=== PATIENT | female | born 1985 | race Hispanic/Latino ===

== ENCOUNTER 2022-03-16 13:11 | Emergency (ER) | payer OTHER ==
--- OUTSIDE RECORDS SUMMARY | 2022-03-16 13:13 | XMS REPORT | Continuity of Care Document ---
:1985 Author Organization [facility] t Address [address] [place] [address] Care Team Providers Name Role Phone Sherwin RAMOS Primary Care Physician Unavailable Ed JENSEN Attending Clinician Unavailable Kirill Hancock DO Attending Clinician Percy VELÁSQUEZ Attending Clinician Unavailable [place] WHKAVON C Attending Clinician Sherwin Velasquez Attending Clinician Payers Payer Name Policy Type Policy Number Effective Date Expiration Date On license of [facility] [id number] 2021 [facility] MEDICAID 00:00:00 Problems Condition Condition Condition Status Onset Resolution Last Treating Co mments Source Name Details Category Date Date Treatment Clinician Date Screening Screening Disease Active 2018-10 Uni vers examinatio examinatio 0-16 it y of n for n for 00:00: [place] venereal venereal 00 Medica l disease disease Branch Lump or Lump or Disease Active 2018-10 Univers mass in mass in 0-16 ity of breast breast 00:00: [place] [address] Medical Branch Vaginal Vaginal Disease Active 2018-10 Univers discharge discharge 0-16 ity of 00:00: [place] [address] Medical Branch Encounter Encounter Disease Active 2018-10 Uni vers for for 0-16 ity of surveillan surve[place]an [place] of ce of 00 Medical contracept contracept Br anch tosha, otsha, unspecifie unspecifie d d contracept contracept ace ace History of History of Disease Active 2018-10 U nivers bilateral bilateral 0-16 ity of tubal tubal 00:00: [place] ligation ligation 00 Medica l Branch IUD IUD Disease Active 2018-10 Univers (intrauter (intrauter 0-16 it y of ine ine 00:00: [place] device) in device) in [address] Branch Vaginitis Vaginitis Disease Active Uni vers and R/O and R/O 8-10 ity of Herpes Herpes 00:00: [place] 00 Medical Branch Tobacco Tobacco Disease Active Univers abuse abuse 6-03 ity of 00:00: [place] 00 Medical Branch 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 No genetic informati on available . To f/u with Ob provider to clarify. If carrier, recommend genetic counselin g and testing of FOB. Chronic Chronic Disease Active Overview: [facility] [place] [facility] ers narcotic narcotic 3- Was on ity of dependence dependence 00:00: 8-10 tabs [place] 00 of Medical hydrocodo Branch ne per day. Decreased to 1-2. Self-wean ing. Let pediatric s know if still on near delivery. Had consult with Dr. Lieberman for possible suboxone, but no immediate appts available . Obesity Obesity Disease Active Overview: [facility] [place] [facility] ers complicati complicati 3-04 Monitor i ty of ng ng 00:00: weight [place] , , 00 [id number] Medical childbirth childbirth Diagnosis Branch , or , or Term puerperium puerperium Correspondence Transcriber , , Utility antepartum antepartum Allergies, Adverse Reactions, Alerts Allergy Allergy Status Severity Reaction(s) Onset Inactive Treating Comm ents Source Name Type Date Date Clinician NO KNOWN Drug Active Univers ALLERGIE Class ity of S [facility] Social History Social Habit Start Date Stop Date Quantity Comments Source History of tobacco Cigarette Smoker [place] of use [facility] Cigarettes smoked 2019-10-20 2019-10-20 Univers ity of current (pack per 00:00:00 00:00:00 [place] ) - Reported Branch Tobacco use and 2019-10-20 2019-10-20 Never used Universit y of exposure 00:00:00 00:00:00 [facility] Cigarette 2019-10-20 2019-10-20 University of pack-years 00:00:00 00:00:00 [facility] Alcohol intake 2019-10-20 2019-10-20 Current University of 00:00:00 00:00:00 non-drinker of [facility] alcohol [place] (finding) Sex Ass[birth year] At [birth year] Universit y of 00:00:00 00:00:00 [facility] Smoking Status Start Date Stop Date Source Current every day smoker 2019-10-20 00:00:[address] [facility] Medications Ordered Filled Start Stop Current Ordering Indication Dosage Frequency Signature Comments Components Source Medication Medication Date Date Medication? Clinician (SIG) Name Name metroNIDAZO 2020-0 Yes [id number] 500mg Take 1 Univers LE 500 mg 3-20 tablet by ity o f tablet 00:00: mouth 2 [place] (two) Medical times Branch daily. metroNIDAZO 2019-0 Yes [id number] 500mg Take 1 Univers LE 500 mg 3-20 tablet by ity o f tablet 00:00: mouth 2 [place] (two) Medical times Branch daily. amoxicillin 2018-10 Yes [id number] 875mg Take 1 Univers 875 mg 2-24 tablet by ity of tablet 00:00: mouth 2 [place] (two) Medical times Branch daily. amoxicillin 2018-10 Yes [id number] 875mg Take 1 Univers 875 mg 2-24 tablet by ity of tablet 00:00: mouth 2 [place] (two) Medical times Branch daily. amoxicillin 2018-10 Yes [id number] 875mg Take 1 Univers 875 mg 2-24 tablet by ity of tablet 00:00: mouth 2 [place] (two) Medical times Branch daily. MULTIVITAMI 2017-10 Yes 3{each} Take 3 U nivers N WITH 2-10 Each by ity of MINERALS 20:48: mouth [place] (HAIR,SKIN 28 daily. Medical AND NAILS Branch ORAL) MULTIVITAMI 2017-10 Yes 3{each} Take 3 U nivers N WITH 2-10 Each by ity of MINERALS 20:48: mouth [place] (HAIR,SKIN 28 daily. Medical AND NAILS Branch ORAL) MULTIVITAMI 2017-10 Yes 3{each} Take 3 U nivers N WITH 2-10 Each by ity of MINERALS 20:48: mouth [place] (HAIR,SKIN 28 daily. Medical AND NAILS Branch ORAL) MULTIVITAMI 2017-10 Yes 3{each} Take 3 U nivers N WITH 2-10 Each by ity of MINERALS 20:48: mouth [place] (HAIR,SKIN 28 daily. Medical AND NAILS Branch ORAL) [facility] 2017-10 Yes TK 1 T PO Uni vers mg tablet 1-29 QD ity of 00:00: [place] 00 Medical Branch [facility] 2017-10 Yes TK 1 T PO Uni vers mg tablet 1-29 QD ity of 00:00: [place] 00 Medical Branch [facility] 2017-10 Yes TK 1 T PO Uni vers mg tablet 1-29 QD ity of 00:00: [place] 00 Medical Branch [facility] 2017-10 Yes TK 1 T PO Uni vers mg tablet 1-29 QD ity of 00:00: [place] 00 Medical Branch [facility] Yes 1{tbl} Take 1 Uni vers XR 5-1,000 2-28 tablet by ity of mg per 00:00: mouth [place] tablet 00 daily. Medical Branch [facility] 2015-10 Yes 1{tbl} Take 1 Uni vers XR 5-1,000 2-28 tablet by ity of mg per 00:00: mouth [place] tablet 00 daily. Medical Branch [facility] Yes 1{tbl} Take 1 Uni vers XR 5-1,000 2-28 tablet by ity of mg per 00:00: mouth [place] tablet 00 daily. Medical Branch [facility] 2015-10 Yes 1{tbl} Take 1 Uni vers XR 5-1,000 2-28 tablet by ity of mg per 00:00: mouth [place] tablet 00 daily. Medical Branch SUBOXONE 2015-10 Yes 1{each} Take 1 Univ ers 8-2 mg 2-23 Each by ity of sublingual 00:00: [place] (two) Medical times Branch daily. SUBOXONE 2015-10 Yes 1{each} Take 1 Univ ers 8-2 mg 2-23 Each by ity of sublingual 00:00: [place] (two) Medical times Branch daily. SUBOXONE 2015-10 Yes 1{each} Take 1 Univ ers 8-2 mg 2-23 Each by ity of sublingual 00:00: [place] (two) Medical times Branch daily. SUBOXONE 2016- Yes 1{each} Take 1 Univ ers 8-2 mg 2-23 Each by ity of sublingual 00:00: [place] (two) Medical times [place] daily. Meclizine Meclizine Yes Na Brannon 1 tablet Common HCl HCl as needed [facility] Naprosyn Naprosyn Yes Na Brannon 1 tablet Common with food Spirit or milk as - [facility] needed [facility] Kombiglyze Kombiglyze Yes Na Brannon TAKE 1 Common XR XR TABLET BY Spirit MOUTH - [facility] EVERY DAY [facility] CVS CVS Yes Na Brannon 1 tablet Common Ranitidine Ranitidine as needed [facility] Na Brannon 1 tablet Co mmon [facility] Macrobid Macrobid Yes Na Brannon 1 capsule Common with food [facility] FreeStyle FreeStyle Yes Na Brannon not Co mmon Lite Test Lite Test defined Sp marie - [facility] Kombiglyze Kombiglyze Yes Na Brannon 1 tablet Common XR XR with Spirit evening - [facility] meal [facility] Procedures This patient has no known procedures. Encounters Start End Encounter Admission Attending Care Care Encounter Source Date/Time Date/Time Type Type Clinicians Facility Department ID 2021-12-26 2021-12-26 Outpatient R SERGIO [facility] [id number] Univers 10:00:00 10:00:00 EDWIN [id number] [facility] 2021-12-26 2021-12-26 [id number] Univers 10:00:00 10:00:00 EDWIN [facility] 2021-01-17 2021-01-17 Patient Santi [facility] [id number] Univers 00:00:00 00:00:00 Outreach Juanjo PRIMARY [id number] i ty of [facility] [id number] [place] [id number] [facility] 2020-05-12 2020-05-12 Outpatient R AKINSIPE, [facility] [id number] Univers 08:15:00 08:15:00 YAQUELIN [id number] ity o f [facility] 2020-05-12 2020-05-12 Outpatient R AKINSIPE, [facility] [id number] Univers 08:15:00 08:15:00 [address]IN ity o [address] [facility] 2020-04-29 2020-04-29 Outpatient R AKINSIPE, [facility] [id number] Univers 10:30:00 10:30:00 YAQUELIN ity o f 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 ical & CHILD 107 [facility] 2019-09-09 2019-09-09 Telephone LEN Ramos [id number] [facility] 00:00:00 00:00:00 Aniaosbaldoyesika Courtney HEAD GOLF COACH [id number] ity of [facility] [id number] Erick as MATERNAL [phone] [facility] ical & CHILD [address] [place] [address] 2018-09-25 2018-09-25 Outpatient [facility] [id number] Common 00:00:00 00:00:00 [facility] 2018-05-13 2018-05-13 [id number] Common 14:30:00 14:30:00 Alset Wellen [facility] it [facility] Results This patient has no known results.
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
--- NOTE | 2022-03-16 15:59 | RAD REPORT ---
EXAM DESCRIPTION: RAD - Knee Left 3 View - 03/16/2022 3:10 pm CLINICAL HISTORY: Pain COMPARISON: No comparisons FINDINGS: No fracture, dislocation or periosteal reaction.No joint effusion seen. No joint space ana maría rowing. No soft tissue abnormality. IMPRESSION: Negative left knee. Clinical concerns for internal derangement or occult bony injury could be further assessed with MR im aging.
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
[2022-03-16 17:30] VITALS: BP 98/76; TEMP 98.9; O2SAT 100
== END 2022-03-16 17:22 | disposition home or self-care (01) ==
LOC: ER 13:11
DX: S00.83XA Contusion of other part of head, initial encounter (principal); S80.02XA Contusion of left knee, initial encounter; S80.01XA Contusion of right knee, initial encounter; V47.6XXA Car passenger injured in collision with fixed or stationary object in traffic accident, initial encounter; E11.9 Type 2 diabetes mellitus without complications; F17.210 Nicotine dependence, cigarettes, uncomplicated
CPT/HCPCS: 70450; 72125; 99284

== ENCOUNTER 2024-12-01 16:16 | Emergency (ER) | payer OTHER ==
[2024-12-01] MEDS ORDERED: NA CHLORIDE 0.9% 1,000 ML ONE ×2 (16:38→17:36)
[2024-12-01 16:46] LABS: Absolute Basophils 0.1 K/uL (0-0.5); Absolute Lymphocytes (CBC) 0.8 K/uL (0.7-4.9); Absolute Monocytes 0.4 K/uL (0.1-1.3); Absolute Neutrophil 5.6 K/uL (1.8-8.0); Eosinophils % 0.4 % (0-4.4); Hematocrit 47.7 % (36.0-45.0); Hemoglobin 15.7 g/dL (12.0-15.0); Lymphocytes % 11.7 % (15.3-44.8); MCH 31.5 pg (27.0-35.0); MCV 95.5 fL (80-100); MPV 9.2 fL (7.6-11.3); Monocytes % 5.5 % (3.3-12.3); Neutrophils % 81.4 % (41.7-73.7); Nucleated Red Blood Cells % 0.1 % (0-0); Platelets 357 thou/uL (152-406); RBC Red Blood Cell Count 4.99 M/uL (3.86-4.86); Red Cell Distribution Width 13.9 % (12.1-15.2)
[2024-12-01 17:04] LABS: Albumin 3.7 g/dL (3.4-5.0); Albumin/Globulin Ratio 0.9 (1.1-1.8); Anion Gap 11.7 mEq/L (5.0-15.0); Bilirubin Total 0.5 mg/dL (0.2-1.0); Globulin 4.3 g/dL (2.3-3.5); Potassium 3.7 mEq/L (3.5-5.1)
[2024-12-01] MEDS ORDERED: POTASSIUM CL SA 10 MEQ TAB PO ONE (17:35)
[2024-12-01] MEDS ORDERED: INSULIN REGULAR (HUMAN) 100 UNIT/ML ONE (17:35)
--- NOTE | 2024-12-01 19:28 | EDPHYS ---
Physician Documentation [facility] Name: Natividad Hirsch Age: 39 yrs Sex: Female : 1985 Arrival Date: 12/01/2024 Time: 16:16 Bed 23 Private MD: ED Physician Gucci Vitale HPI: 12/01 16:27 This 39 yrs old Female presents to ER via Unassigned with complaints of ms3 hyperglycemia. 16:27 39 year old female presents to the Emergency Department with symptoms of nausea, ms3 dizziness, and dry mouth. The patient reports being thirsty. Patient states she is currently on Metformin for her diabetes. Patient states [facility] came to the residential and checked her glucose and she was told it was high.. Historical: - Allergies: 16:17 No Known Allergies; db - Home Meds: 16:44 Metformin Oral [Active]; db - PMHx: 16:44 diabetes mellitus; db - PSHx: 16:44 section; db - Immunization history:: Adult Immunizations unknown. - Infectious Disease History:: Denies. - Social history:: Smoking status: Patient reports the use of cigarette tobacco products, smokes one-half pack cigarettes per day, Reported history of juuling and/or vaping. ROS: 16:27 Constitutional: Negative for fever, and chills. Cardiovascular: Negative for chest ms3 pain, and palpitations. Respiratory: Negative for shortness of breath, cough, wheezing, and pleuritic chest pain, Abdomen/GI: Negative for abdominal pain, nausea, vomiting, diarrhea, and constipation, MS/Extremity: Negative for injury and deformity, 16:27 Endocrine: Positive for polydipsia, polyuria, Exam: 16:27 Constitutional: This is a well developed, well nourished patient who is awake, alert, ms3 and in no acute distress. Cardiovascular: Regular rate and rhythm with a normal S1 and S2. No gallops, murmurs, or rubs. Normal PMI, no JVD. No pulse deficits. Respiratory: Lungs have equal breath sounds bilaterally, clear to auscultation and percussion. No rales, rhonchi or wheezes noted. No increased work of breathing, no retractions or nasal flaring. Abdomen/GI: Soft, non-tender, with normal bowel sounds. No distension or tympany. No guarding or rebound. No evidence of tenderness throughout. Skin: Warm, dry with normal turgor. Normal color with no rashes, no lesions, and no evidence of cellulitis. MS/ Extremity: Pulses equal, no cyanosis. Neurovascular intact. Full, normal range of motion. Vital Signs: 16:17 BP 109 / 77; Pulse 113; Resp 16; Temp 98.5; Pulse Ox 100% ; Weight 46.27 kg; Height 5 db ft. 3 in. ; 17:00 BP 120 / 89; Pulse 101; Resp 16; Pulse Ox 100% on R/A; db 18:00 BP 112 / 87; Pulse 85; Resp 16; Pulse Ox 100% on R/A; db 19:39 BP 101 / 76; Pulse 90; Resp 17; Temp 98.7; Pulse Ox 100% ; vk 16:17 Body Mass Index 18.07 (46.27 kg, 160.02 cm) db MDM: 16:24 Medical Screening Exam initiated ms3 16:27 Differential diagnosis: DKA, hyperglycemia. ms3 20:18 Data reviewed: vital signs, nurses notes, and as a result, I will discharge patient. I ms3 considered the following discharge prescriptions or medication management in the emergency department Medications were administered in the Emergency Department. See MAR. Counseling: I had a detailed discussion with the patient and/or guardian regarding the historical points, exam findings, and any diagnostic results supporting the discharge/admit diagnosis, lab results, the need for outpatient follow up, to return to the emergency department if symptoms worsen or persist or if there are any questions or concerns that arise at home. Special discussion: I discussed with the patient/guardian in detail that at this point there is no indication for admission to the hospital. It is understood, however, that if the symptoms persist or worsen the patient needs to return immediately for re-evaluation. ED course: Patient with elevated blood glucose level without anion gap. Patient tolerating p.o. in the emergency department, symptoms improved, alert and orient x 4, no apparent distress, nontoxic-appearing. Patient states she is currently out of her metformin 500 mg twice daily. Patient given prescription for metformin 500 mg twice daily. Patient to follow-up with her primary care physician tomorrow as discussed. All questions were answered. Return precautions discussed include worsening symptoms, or any other concerns.. 12/01 16:24 Order name: CBC with Diff; Complete Time: 17:08 ms3 12/01 16:24 Order name: CMP; Complete Time: 17:15 ms3 12/01 16:47 Order name: Glucose, Ancillary Testing; Complete Time: 16:50 EDMS 12/01 19:05 Order name: Glucose, Ancillary Testing; Complete Time: 19:23 EDMS 12/01 16:24 Order name: Glucose Level; Complete Time: 16:36 ms3 12/01 18:07 Order name: Glucose Level; Complete Time: 18:55 ms3 Administered Medications: 16:28 Drug: NS 0.9% IV 1000 ml IV at 1000 ml once; to be given as a bolus over 60 minutes db Route: IV; Rate: 1000 ml; Site: right antecubital; 17:30 Follow up: Response: No adverse reaction; IV Status: Completed infusion; IV Intake: db 1000ml 17:36 Drug: Insulin Regular Human Sub-Q 10 units Sub-Q once {Co-Signature: ll1 (Rory Tellez RN).} Route: Sub-Q; Site: right upper arm; 18:54 Follow up: Response: No adverse reaction; Blood sugar is lowered db 17:39 Drug: Potassium Chloride PO 40 mEq PO once Route: PO; db 18:54 Follow up: Response: No adverse reaction db 17:39 Drug: NS 0.9% IV 1000 ml IV at 1000 ml once; to be given as a bolus over 60 minutes db Route: IV; Rate: 1000 ml; Site: right antecubital; 19:41 Follow up: Response: No adverse reaction; IV Status: Completed infusion; IV Intake: lg3 1000ml Point of Care Testing: Blood Glucose: 18:54 Blood Glucose: 423 mg/dL; db Ranges: Critical Glucose Levels:Adult <50 mg/dl or >400 mg/dl <40 mg/dl or >180 mg/dl Disposition Summary: 12/01/24 19:27 Discharge Ordered Notes: Location: Home ms3 Condition: Stable ms3 Diagnosis - Type 2 diabetes mellitus with hyperglycemia ms3 Followup: ms3 - With: Sin Moya DO - When: 2 - 3 days - Reason: Recheck today's complaints Discharge Instructions: - Discharge Summary Sheet ms3 - Hyperglycemia ms3 Forms: - Medication Reconciliation Form ms3 - Antibiotic Education ms3 - Prescription Opioid Use ms3 - Patient Portal Instructions ms3 - Leadership Thank You Letter ms3 Prescriptions: - Metformin 500 mg Oral tablet - take 1 tablet ORAL route every 12 hours Then take 1 tablet with morning meals ms3 AND evening meals; 30 tablet; Refills: 0, Product Selection Permitted Signatures: Dispatcher [employer] EDMS Gucci Vitale DO DO ms3 Anel Ruiz RN RN db Poonam Maxwell RN lg3 Rory Tellez RN ll1
--- NOTE | 2024-12-01 19:28 | ER ---
Nurse's Notes [facility] Name: Natividad Hirsch Age: 39 yrs Sex: Female : 1985 Arrival Date: 12/01/2024 Time: 16:16 Bed 23 Private MD: Diagnosis: Type 2 diabetes mellitus with hyperglycemia Presentation: 12/01 16:17 Chief complaint: Patient states: HIGH BLOOD SUGAR AT THE GROUP HOME TODAY. READ HIGH. OUT OF db METFORMIN X 1 MONTH. Coronavirus screen: Client denies travel out of the [place] in the last 14 days. At this time, the client does not indicate any symptoms associated with coronavirus-19. Ebola Screen: Patient negative for fever greater than or equal to 101.5 degrees Fahrenheit, and additional compatible Ebola Virus Disease symptoms Patient denies exposure to infectious person. Patient denies travel to an Ebola-affected area in the 21 days before illness onset. No symptoms or risks identified at this time. Initial Sepsis Screen: Does the patient meet any 2 criteria? No. Patient's initial sepsis screen is negative. Does the patient have a suspected source of infection? No. Patient's initial sepsis screen is negative. Risk Assessment: Do you want to hurt yourself or someone else? Patient reports no desire to harm self or others. Onset of symptoms was December 01, 2024. 16:17 Method Of Arrival: Law Enforcement: Charlie CELESTE 16:17 Acuity: LORENZA 3 db Triage Assessment: 16:17 General: Appears in no apparent distress. comfortable, Behavior is calm, cooperative. db Pain: Denies pain. Neuro: Level of Consciousness is awake, alert, obeys commands, Oriented to person, place, time, situation. Respiratory: Airway is patent Respiratory effort is even, unlabored, Respiratory pattern is regular, symmetrical. Historical: - Allergies: 16:17 No Known Allergies; db - Home Meds: 16:44 Metformin Oral [Active]; db - PMHx: 16:44 diabetes mellitus; db - PSHx: 16:44 section; db - Immunization history:: Adult Immunizations unknown. - Infectious Disease History:: Denies. - Social history:: Smoking status: Patient reports the use of cigarette tobacco products, smokes one-half pack cigarettes per day, Reported history of juuling and/or vaping. Screenin:13 [facility] ED Fall Risk Assessment (Adult) History of falling in the last 3 months, db including since admission No falls in past 3 months (0 pts) Confusion or Disorientation No (0 pts) Intoxicated or Sedated No (0 pts) Impaired Gait No (0 pts) Mobility Assist Device Used No (0 pt) Altered Elimination No (0 pt) Score/Fall Risk Level 0 - 2 = Low Risk Oriented to surroundings, Maintained a safe environment. Abuse screen: Denies threats or abuse. Denies injuries from another. Nutritional screening: No deficits noted. Tuberculosis screening: No symptoms or risk factors identified. Assessment: 16:30 Reassessment: see triage for initial assessment. db 17:00 Reassessment: PATIENT AMBULATORY TO RESTROOM. db 18:13 Reassessment: Patient appears in no apparent distress at this time. Patient and/or db family updated on plan of care and expected duration. Pain level reassessed. Patient is alert, oriented x 3, equal unlabored respirations, skin warm/dry/pink. General: Appears in no apparent distress. comfortable, Behavior is calm, cooperative. Neuro: Level of Consciousness is awake, alert, obeys commands, Oriented to person, place, time, situation. Respiratory: Airway is patent Respiratory effort is even, unlabored, Respiratory pattern is regular, symmetrical. 18:54 Reassessment: Patient appears in no apparent distress at this time. Patient and/or db family updated on plan of care and expected duration. Pain level reassessed. Patient is alert, oriented x 3, equal unlabored respirations, skin warm/dry/pink. Patient states feeling better. Patient states symptoms have improved. 19:41 Reassessment: Patient appears in no apparent distress at this time. Patient and/or lg3 family updated on plan of care and expected duration. Pain level reassessed. Patient is alert, oriented x 3, equal unlabored respirations, skin warm/dry/pink. Patient states feeling better. Patient states symptoms have improved. Vital Signs: 16:17 BP 109 / 77; Pulse 113; Resp 16; Temp 98.5; Pulse Ox 100% ; Weight 46.27 kg; Height 5 db ft. 3 in. ; 17:00 BP 120 / 89; Pulse 101; Resp 16; Pulse Ox 100% on R/A; db 18:00 BP 112 / 87; Pulse 85; Resp 16; Pulse Ox 100% on R/A; db 19:39 BP 101 / 76; Pulse 90; Resp 17; Temp 98.7; Pulse Ox 100% ; vk 16:17 Body Mass Index 18.07 (46.27 kg, 160.02 cm) db ED Course: 16:17 Arm band placed on Patient placed in an exam room. db 16:24 Patient arrived in ED. bd 16:24 Gucci Vitale DO is Attending Physician. ms3 16:27 Anel Ruiz, RN is Primary Nurse. db 16:35 Initial lab(s) drawn, by me, sent to lab. Inserted saline lock: 20 gauge in right db antecubital area, using aseptic technique. Blood collected. Flushed with 10 mL NS. 16:44 Triage completed. db 18:13 Patient has correct armband on for positive identification. Bed in low position. Call db light in reach. Side rails up X 1. Pulse ox on. NIBP on. Warm blanket given. Pillow given. 18:54 No provider procedures requiring assistance completed. db 19:27 Sin Moya DO is Referral Physician. ms3 19:42 IV discontinued, intact, bleeding controlled, No redness/swelling at site. Pressure lg3 dressing applied. Administered Medications: 16:28 Drug: NS 0.9% IV 1000 ml IV at 1000 ml once; to be given as a bolus over 60 minutes db Route: IV; Rate: 1000 ml; Site: right antecubital; 17:30 Follow up: Response: No adverse reaction; IV Status: Completed infusion; IV Intake: db 1000ml 17:36 Drug: Insulin Regular Human Sub-Q 10 units Sub-Q once {Co-Signature: ll1 (Rory Tellez db RN).} Route: Sub-Q; Site: right upper arm; 18:54 Follow up: Response: No adverse reaction; Blood sugar is lowered db 17:39 Drug: Potassium Chloride PO 40 mEq PO once Route: PO; db 18:54 Follow up: Response: No adverse reaction db 17:39 Drug: NS 0.9% IV 1000 ml IV at 1000 ml once; to be given as a bolus over 60 minutes db Route: IV; Rate: 1000 ml; Site: right antecubital; 19:41 Follow up: Response: No adverse reaction; IV Status: Completed infusion; IV Intake: lg3 1000ml Medication: 19:42 VIS not applicable for this client. lg3 Point of Care Testing: Blood Glucose: 18:54 Blood Glucose: 423 mg/dL; db Ranges: Intake: 17:30 IV: 1000ml; Total: 1000ml. db 19:41 IV: 1000ml; Total: 2000ml. lg3 Outcome: 19:27 Discharge ordered by . ms3 19:41 Discharged to home ambulatory, lg3 19:41 Condition: stable 19:41 Discharge instructions given to patient, Instructed on discharge instructions, follow up and referral plans. medication usage, Demonstrated understanding of instructions, follow-up care, medications, Prescriptions given X 1, 19:42 Patient left the ED. lg3 Signatures: Adina Hyman Lacie, RN RN lg3 Gucci Vitale DO DO ms3 Anel Ruiz, RN RN Alia Lafleur Lynsay RN ll1 Corrections: (The following items were deleted from the chart) 19:42 19:39 IV discontinued, intact, bleeding controlled, No redness/swelling at site. lg3 Pressure dressing applied, vk
[2024-12-01 20:31] VITALS: O2SAT 100
[2024-12-01 20:39] VITALS: BP 101/76; TEMP 98.7
== END 2024-12-01 19:42 | disposition home or self-care (01) ==
LOC: ER 16:16
DX: E11.65 Type 2 diabetes mellitus with hyperglycemia (principal); F17.210 Nicotine dependence, cigarettes, uncomplicated
CPT/HCPCS: 85025; 36415; 82947 ×2; 80053; J7030 ×2